=== PATIENT | female | born 1985 | race Caucasian/White ===

== ENCOUNTER 2018-09-09 18:41 | Emergency (ER) | payer OTHER ==
[2018-09-09 19:21] VITALS: BP 117/59; PULSE 81; RESP 17; TEMP 98.5
[2018-09-09] MEDS ORDERED: DIPH,PERTUS(ACELL)TETVAC-LF 0.5 ML VIAL IM ONE (20:11)
--- NOTE | 2018-09-09 20:50 | XR ---
EXAMINATION TYPE: XR hand complete RT DATE OF EXAM: 09/09/2018 COMPARISON: NONE HISTORY: Pain TECHNIQUE: 3 views FINDINGS: Metacarpals are intact. I see no fracture nor dislocation. Joint spaces are normal. IMPRESSION: Negative right hand exam.
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
[2018-09-09 21:05] LABS: Amphetamine Screen,Urine Detected (NotDetected); Barbiturate Screen,Urine Not Detected (NotDetected); Benzodiazepines Screen,Urine Not Detected (NotDetected); Cocaine Screen,Urine Not Detected (NotDetected); Methadone Screen, Urine Not Detected (NotDetected); Opiate Screen,Urine Not Detected (NotDetected); Oxycodone Screen, Urine Not Detected (NotDetected); Phencyclidine Screen,Urine Not Detected (NotDetected); Tricyclic Antidepressant,Urine Not Detected (NotDetected); Urn Cannabinoid Scrn Detected (NotDetected)
== END 2018-09-09 21:30 | disposition home or self-care (01) ==
LOC: EC 18:41
DX: T74.21XA Adult sexual abuse, confirmed, initial encounter (principal); S60.221A Contusion of right hand, initial encounter; Z23 Encounter for immunization; F41.0 Panic disorder [episodic paroxysmal anxiety]; F17.200 Nicotine dependence, unspecified, uncomplicated; Z79.51 Long term (current) use of inhaled steroids; Z79.899 Other long term (current) drug therapy; Z88.5 Allergy status to narcotic agent
CPT/HCPCS: 80306; 90471; 90715; 99285